=== PATIENT | female | born 1990 | race Caucasian/White ===

== ENCOUNTER 2016-11-23 17:56 | Emergency (ER) | payer OTHER ==
[2016-11-23 18:07] VITALS: BP 139/81
[2016-11-23] MEDS ORDERED: IBUPROFEN 400 MG TABLET PO STA (18:50)
--- NOTE | 2016-11-23 18:52 | ED Physician Documentation ---
History of Present Illness - Stated complaint Stated Complaint: MOUTH PX - Chief complaint Chief Complaint: Heent - Additonal information Additional information: hx from pt 26 y/o f denies preg r upper dental pain - known decay, pain started last week, holiday weekend so could not see her dentist but was told she needs antibiotics before they can work on the tooth, severe pain despite oragel she has purulent drainage earlier Review of Systems Constitutional: denies: Fever Throat: reports: Dental pain / toothache : denies: Now [facility] [facility] PAST MEDICAL HISTORY - Past Medical History Past Medical History: No - Past Surgical History Past Surgical History: No - Present Medications Home Medications: Ambulatory Orders Medication Instructions Recorded Confirmed Clindamycin [Cleocin] 300 mg PO Q6H 7 Days 11/23/16 Ibuprofen [Motrin] 400 mg PO Q6H PRN #20 tablet 11/23/16 Oxycodone HCl/Acetaminophen 1 each PO Q6HR PRN #10 tablet 11/23/16 [Percocet 5-325 mg Tablet] - Allergies Allergies/Adverse Reactions: Allergies Allergy/AdvReac Type Severity Reaction Status Date / Time Penicillins Allergy Rash Verified 11/23/16 18:02 - Social History Does the pt smoke?: Yes Smoking Status: Current every day smoker Does the pt drink ETOH?: No Does the pt have substance abuse?: No - Immunizations Immunizations are current?: Yes - POLST Patient has POLST: No PD ED PE NORMAL - Vitals Vital signs reviewed: Yes - HEENT HEENT: Other (upper right molar with posterior lateral decay and severe TTP, no visible abscess, no trismuis, some r anterior cervical adenopathy) - Neck Neck: Supple, no meningeal sign - Cardiac Cardiac: RRR - Respiratory Respiratory: No respiratory distress, Clear bilaterally Results - Vitals Vitals: Vital Signs - 24 hr 11/23/16 17:59 Temperature 36.7 C Heart Rate 73 Respiratory 20 Rate Blood Pressure 139/81 H O2 Saturation 100 Oxygen O2 Source Room air Departure - Departure Disposition: 01 Home, Self Care Clinical Impression: Dental abscess Condition: Good Instructions: ED Abscess Dental Prescriptions: Oxycodone HCl/Acetaminophen [Percocet 5-325 mg Tablet] 1 each PO Q6HR PRN #10 tablet PRN Reason: Severe Pain Clindamycin [Cleocin] 300 mg PO Q6H 7 Days Ibuprofen [Motrin] 400 mg PO Q6H PRN #20 tablet PRN Reason: Pain Comments: Please get your blood pressure rechecked when you feel better - it was high today Forms: Activity restrictions
[2016-11-23] MEDS ORDERED: IBUPROFEN 400 MG TABLET PO ONE (18:53)
== END 2016-11-23 19:00 | disposition home or self-care (01) ==
LOC: ED 17:56
DX: K04.7 Periapical abscess without sinus (principal); F17.200 Nicotine dependence, unspecified, uncomplicated
CPT/HCPCS: 99283; A9270

== ENCOUNTER 2022-01-01 12:41 | Emergency (ER) | payer OTHER, BC ==
--- NOTE | 2022-01-01 13:42 | ED Physician Documentation ---
PD HPI UPPER EXT INJURY - Stated complaint Stated Complaint: CUT ON LEFT FINGER - Chief complaint Chief Complaint: Laceration - History obtained from History obtained from: Patient - History of Present Illness Location: Left (Right-handed woman up-to-date on tetanus cut her left index finger with a knife at work just prior to arrival.) Review of Systems Constitutional: reports: Reviewed and negative Eyes: reports: Reviewed and negative Ears: reports: Reviewed and negative Nose: reports: Reviewed and negative Throat: reports: Reviewed and negative PD PAST MEDICAL HISTORY - Past Surgical History Past Surgical History: No - Present Medications Home Medications: Ambulatory Orders Medication Instructions Recorded Confirmed Clindamycin [Cleocin] 300 mg PO Q6H 7 Days capsule 11/23/16 Ibuprofen [Motrin] 400 mg PO Q6H PRN #20 tablet 11/23/16 Oxycodone HCl/Acetaminophen 1 each PO Q6HR PRN #10 tablet 11/23/16 [Percocet 5-325 mg Tablet] HYDROcod/ACETAM 5/325 [[place] 5/325] 1 - 2 tab PO Q6H PRN #15 tablet 01/01/22 cephALEXin [Keflex] 500 mg PO Q6H #20 cap 01/01/22 - Allergies Allergies/Adverse Reactions: Allergies Allergy/AdvReac Type Severity Reaction Status Date / Time Penicillins Allergy Rash Verified 01/01/22 13:02 - Social History Does the pt smoke?: Yes Smoking Status: Current every day smoker Does the pt drink ETOH?: No Does the pt have substance abuse?: No - Immunizations Immunizations are current?: Yes - POLST Patient has POLST: No PD ED PE NORMAL - Vitals Vital signs reviewed: Yes - General General: Alert and oriented X 3, No acute distress - Extremities Extremities: Other (She has a complete amputation of greater than 1 cm of the pulp of the left index finger that does not involve nail or bone. She has the piece with her on ice.) - Neuro Neuro: Alert and oriented X 3, Normal speech - Psych Psych: Normal mood, Normal affect Results - Vitals Vitals: Vital Signs - 24 hr 01/01/22 01/01/22 01/01/22 13:00 13:41 13:43 Temperature 36.6 C 37.2 C Heart Rate 110 H 98 102 H Respiratory 28 H 18 20 Rate Blood Pressure 140/100 H 156/98 H 157/126 H O2 Saturation 99 98 98 Oxygen O2 Source Room air Procedures - Laceration (location) L 2nd finger Length in cm: 2 Wound type: Other (It is a complete amputation of the tip with a fairly thick amputated part separately.) Anesthesia: Lidocaine 1% with epi (Digital block) Wound preparation: Hibiclens, Irrigated copiously NS (Both the amputated part and the finger were irrigated and washed with Hibiclens) Skin layer closure: Nylon, Interrupted, Size #-0 - enter number (5-0), Other (The amputated part was tacked back on) Other: Patient tolerated well, No complications, Neurovascular intact, Dressing applied, Tetanus UTD PD MEDICAL DECISION MAKING - ED course ED course: [place] # [id number] completed 31-year-old woman with complete amputation of skin and soft tissue of pulp of finger. Brought in on ice. It was tacked back on after irrigation and a digital block and I think it will take but she was given signs and symptoms to watch out for and return for. Also discussed wound care. Departure - Departure Disposition: 01 Home, Self Care Clinical Impression: Traumatic amputation of fingertip Qualifiers: Encounter type: initial encounter Qualified Code(s): S68.119A - Complete traumatic metacarpophalangeal amputation of unspecified finger, initial encounter Condition: Good Record reviewed to determine appropriate education?: Yes Instructions: ED Laceration All Prescriptions: cephALEXin [Keflex] 500 mg PO Q6H #20 cap HYDROcod/ACETAM 5/325 [[place] 5/325] 1 - 2 tab PO Q6H PRN #15 tablet PRN Reason: Pain Comments: Return here Tuesday morning for a wound check. Sooner for worse symptoms. I sent your prescription electronically to [facility] in [place]. Come back for any signs of infection which would include: Redness, swelling, drainage, increased pain, or fevers. You can wash it soap and water. Keep it covered and moist with bacitracin o intment which is available over the counter; avoid neosporin. Follow-up with your physician in 14 Days for suture removal. I am prescribing a short course of narcotic pain medication for you. These are potentially dangerous and addictive medications that should be used carefully. These medications may constipate you. Take an [id number] stool softener (docusate) twice daily with plenty of water while taking these medications. If you go 24 hours without a bowel movement, take [id number] miralax, per package instructions. Do not drink or drive while taking these medications. If you received narcotic or sedating medications while in the emergency department, do not drive for 24 hours. Store this medication in a safe, secure place and out of reach of children. It is a violation of federal law to give or sell this medication to another person or to use in a manner other than prescribed. The ED will not refill narcotic prescriptions, including prescriptions lost or stolen. To dispose of unwanted medications: 1. [facility] at [address] in [place] has a medication drop box. They accept prescription medications (in pill form) Tuesday through Tuesday 9:00 a.m. to 5:00 p.m. 2. The [facility] accepts prescription medications (in pill form only) for disposal year round. Call for more informat ion. 3. Contact the [facility] for the next [facility] sponsored prescription drug collection event. , [phone], or [phone]; Note that many narcotic pain relievers also contain Tylenol/acetaminophen. Please ensure that your total dose of acetaminophen from all sources does not exceed 3 g (3000 mg) per day. Forms: Activity restrictions Discharge Date/Time: 01/01/22 13:50
[2022-01-01 13:44] VITALS: BP 157/126
== END 2022-01-01 13:50 | disposition home or self-care (01) ==
LOC: ED 12:41
DX: S68.119A Complete traumatic metacarpophalangeal amputation of unspecified finger, initial encounter (principal); W26.0XXA Contact with knife, initial encounter; Y93.89 Activity, other specified; F17.200 Nicotine dependence, unspecified, uncomplicated
CPT/HCPCS: 1040M; 12001; 99282

== ENCOUNTER 2022-01-04 18:49 | Emergency (ER) | payer OTHER, BC ==
[2022-01-04 19:00] VITALS: BP 151/79
--- NOTE | 2022-01-04 20:43 | ED Physician Documentation ---
History of Present Illness - Stated complaint Stated Complaint: WOUND CHECK UP - Chief complaint Chief Complaint: Laceration - Additonal information Additional information: 31-year-old female presents emergency department for evaluation of a left index fingertip amputation. Sustained 3 days ago. Occurred while using a knife. The tip was sutured back on. She has been on Keflex. Reports pain typically well controlled until this morning when her dog licked her hand and twisted the bandage on the finger. Since then increased pain. No fevers. Review of Systems Constitutional: reports: Reviewed and negative Cardiac: reports: Reviewed and negative Respiratory: reports: Reviewed and negative Skin: reports: Laceration (s) Musculoskeletal: reports: Reviewed and negative PD PAST MEDICAL HISTORY - Past Surgical History Past Surgical History: No - Present Medications Home Medications: Ambulatory Orders Medication Instructions Recorded Confirmed Clindamycin [Cleocin] 300 mg PO Q6H 7 Days capsule 11/23/16 Ibuprofen [Motrin] 400 mg PO Q6H PRN #20 tablet 11/23/16 Oxycodone HCl/Acetaminophen 1 each PO Q6HR PRN #10 tablet 11/23/16 [Percocet 5-325 mg Tablet] HYDROcod/ACETAM 5/325 [[place] 5/325] 1 - 2 tab PO Q6H PRN #15 tablet 01/01/22 cephALEXin [Keflex] 500 mg PO Q6H #20 cap 01/01/22 - Allergies Allergies/Adverse Reactions: Allergies Allergy/AdvReac Type Severity Reaction Status Date / Time Penicillins Allergy Rash Verified 01/04/22 19:00 - Social History Does the pt smoke?: Yes Smoking Status: Current every day smoker Does the pt drink ETOH?: No Does the pt have substance abuse?: No - Immunizations Immunizations are current?: Yes - POLST Patient has POLST: No PD ED PE EXPANDED - Extremities Extremities: Left finger(s) (Distal tip amputation adhered with sutures. It is maroon and white in color but sensate. Saturation of 94%. Patient able to flex and extend at DIP point) Results - Vitals Vitals: Vital Signs - 24 hr 01/04/22 18:56 Temperature 36.5 C Heart Rate 68 Respiratory 16 Rate Blood Pressure 151/79 H O2 Saturation 98 Oxygen O2 Source Room air PD MEDICAL DECISION MAKING - ED course Complexity details: considered differential, d/w patient ED course: 31-year-old female here for wound check on her distal left fingertip after an amputation with a knife a few days ago. On antibiotic prophylaxis. The tip itself is partially maroon and discolored but the tip is sensate. Saturations were checked and they were 94%. She is advised to continue the antibiotics. The tip itself is without fevers milky drainage erythema or unexpected tenderness. Does not appear infected. Routine wound care now discussed. Discussed that if the tip did not adhere that it would likely heal from the inside out which she is comfortable with. She will continue follow-up with her primary provider in [place] where she lives. Departure - Departure Disposition: Home, Self Care Clinical Impression: Visit for wound check Condition: Stable Record reviewed to determine appropriate education?: Yes Comments: Emiliana the fingertip amputation appears to be healing well without signs of infection. At this point I am 50-50 whether the tip will survive. However ther e is no signs of infection. Continue the full course of antibiotics. You can gently wash the tip with warm soap and water, pat dry and then apply any antibiotic ointment and a dressing as shown. If the tip does not survive you can expect the wound to heal from the inside out. The suture should still be removed in 10 to 12 days time. Return to any emergency department or your primary care provider if you have concerns of infection
== END 2022-01-04 20:58 | disposition home or self-care (01) ==
LOC: ED 18:49
DX: S61.211D Laceration without foreign body of left index finger without damage to nail, subsequent encounter (principal); W26.0XXD Contact with knife, subsequent encounter; F17.200 Nicotine dependence, unspecified, uncomplicated
CPT/HCPCS: 99281